=== PATIENT | female | born 1965 | race Caucasian/White ===

== ENCOUNTER 2019-02-14 10:40 | Day surgery (SDC) | payer OTHER ==
[~2019-02-14] VITALS: Ht 162.6 cm; Wt 107.3 kg
[~2019-02-14 10:40] MED LIST: ALBU8HFA IH; FLUT16H NASAL; SODIUM CHLORIDE 0.9% 1,000 ML IV ONE
[2019-02-14] MEDS: SODIUM CHLORIDE 0.9% 1,000 ML IV ONE (11:25)
[2019-02-14 11:30] LABS: GLUCOMETER DEV NAME(LOC) SDS.; GLUCOSE,POINT OF CARE 116 MG/DL (70-110)
[2019-02-14] MEDS ORDERED: PROPOFOL 1% 20 ML VIAL IVP ONE (12:00)
[2019-02-14] MEDS ORDERED: LIDOCAINE/PF 2% 5 ML VIAL INJ ONE (12:00)
== END 2019-02-14 14:40 | disposition home or self-care (01) ==
LOC: SURGERY 10:40
PROVIDERS: ATTEND Internal Medicine Gastroenterology
DX: Z12.11 Encounter for screening for malignant neoplasm of colon (principal); K64.8 Other hemorrhoids; J45.909 Unspecified asthma, uncomplicated; E66.09 Other obesity due to excess calories; Z79.899 Other long term (current) drug therapy; D64.9 Anemia, unspecified; Z98.890 Other specified postprocedural states; Z83.3 Family history of diabetes mellitus; Z87.891 Personal history of nicotine dependence; Z88.6 Allergy status to analgesic agent; Z90.49 Acquired absence of other specified parts of digestive tract; Z72.89 Other problems related to lifestyle; Z68.41 Body mass index [BMI] 40.0-44.9, adult
CPT/HCPCS: 45378; 82962; J2704; J3490; J7030